=== PATIENT | female | born 1935 | race Caucasian/White ===

== ENCOUNTER 2016-11-12 09:37 | Day surgery (SDC) | payer MEDICARE, OTHER ==
[~2016-11-12] VITALS: Ht 165.1 cm; Wt 164.0 kg
[~2016-11-12 09:37] MED LIST: 0.9% Sodium Chloride 1,000 ML IV SCH; AMLO5TAB2 PO; ATOR20TA PO; BIOT800T PO; CHOL25PO8 PO; DICY20TA33 PO; ESCI20TA38 PO; FENO145T19 PO; GABA600T2 PO; GLIP5POW MC; LEVO50CA2 PO; LOSA100T29 PO; METF750T2 PO; METO-274 PO; MONT10TA23 PO; MULT-666 PO; PANT40TA3 PO; SITA50TA PO; Sodium Chloride LOK Flush 10 mL Syringe IV PRN; ZOLP10TA5 PO; fentaNYL-PF 50 mCg/mL 2 mL Inj IVPUSH PRN
[2016-11-12 10:21] VITALS: BP 155/77; PULSE 56; RESP 14; O2SAT 98
[2016-11-12 10:53] VITALS: BP 143/69; PULSE 67; RESP 14; O2SAT 93
[2016-11-12 11:08] VITALS: BP 161/74; PULSE 59; RESP 16; O2SAT 96
[2016-11-12 11:12] VITALS: BP 156/77; PULSE 59; RESP 16; O2SAT 98
--- NOTE | 2016-11-12 14:19 | ENDO ---
[address] [address] ENDOSCOPY PROCEDURE PATIENT: ALEXANDRIA PADRON : 1935 MR#: [id number] ADMIT: 11/12/2016 JOB ID: [id number] DATE OF SERVICE: 11/12/2016 TYPE OF OPERATION: Colonoscopy with biopsy. PREOPERATIVE DIAGNOSIS(ES): Diarrhea. POSTOPERATIVE DIAGNOSIS(ES): 1. Severe sigmoid diverticulosis. 2. Ascending colon diverticulosis. 3. External and internal hemorrhoids. ANESTHESIA: Fentanyl 100 mcg, Versed 4 mg IV administered. COMPLICATIONS: None. BLOOD LOSS: Minimal. DESCRIPTION OF PROCEDURE: After risks and benefits explained to the patient, informed consent was obtained. After anesthesia administered, colonoscope was then inserted from rectum to the terminal posterior, and mucosa carefully examined. Prep of the patient was excellent. After the procedure was done, the scope withdrawn and procedure terminated. FINDINGS: Upon inspection of the anus, there were external hemorrhoids, moderate. During the entire examination, there was severe sigmoid diverticulosis and mild ascending colon diverticulosis. Retroflexion showed small internal hemorrhoids. IMPRESSION: 1. Moderate internal and external hemorrhoids. 2. Severe sigmoid diverticulosis. 3. Mild ascending colon diverticulosis. 4. Random biopsies were taken from the terminal ileum and random colon. RECOMMENDATIONS: Await pathology results. High-fiber diet. Follow up in GI clinic as needed.
--- NOTE | 2016-11-13 11:03 | PATH ---
SURGICAL PATHOLOGY Attending Physician:Daniel Boyd MD CASE STATUS: Signed Out PATIENT NAME: ALEXANDRIA PADRON PID: [id number] : 1935 DATE COLLECTED:11/12/2016 16:16 SPECIMEN: 1: Ileum, Biopsy 2: Colon, Biopsy CLINICAL HISTORY: 1. TI BX 2. RANDOM COLON BX FINAL DIAGNOSIS: 1.TERMINAL ILEUM BIOPSY: NORMAL TERMINAL ILEUM MUCOSA. No inflammation identified. Negative for dysplasia and malignancy. 2.RANDOM COLON BIOPSY: COLONIC MUCOSA WITH NO DIAGNOSTIC ALTERATIONS. Negative for inflammation, dysplasia and malignancy. ICD10 CODE R19.7 GROSS DESCRIPTION: The specimen is received in two formalin filled containers labeled with the patient's name. 1). The specimen is sublabeled "TI" and consists of a 0.2 x 0.2 x 0.2 CM portion of tissue which is entirely submitted in cassette 1A. 2). The specimen is sublabeled "random colon" and consists of 4 portions of tissue which aggregate to 4 x 0.4 x 0.3 CM. The specimen is entirely submitted in cassette 2A. 11/12/2016 [facility] MICRO DESCRIPTION: See diagnosis. ICD-9 CODES: CPT CODES: 1: 11948 2: 61162 Electronically Signed Out Rosa Romo MD [facility] Pathology [facility], [place] [address] Technical component performed at [facility], [facility], [facility] [address], [place], [address]
== END 2016-11-12 23:59 | disposition home or self-care (01) ==
LOC: END 09:37
PROVIDERS: ATTEND Internal Medicine Gastroenterology
DX: K57.30 Diverticulosis of large intestine without perforation or abscess without bleeding (principal); K64.8 Other hemorrhoids; K64.9 Unspecified hemorrhoids; R10.13 Epigastric pain; K59.00 Constipation, unspecified; R14.0 Abdominal distension (gaseous); E11.9 Type 2 diabetes mellitus without complications; F41.9 Anxiety disorder, unspecified; E78.5 Hyperlipidemia, unspecified; E03.9 Hypothyroidism, unspecified; K21.9 Gastro-esophageal reflux disease without esophagitis; Z98.84 Bariatric surgery status; Z79.84 Long term (current) use of oral hypoglycemic drugs
CPT/HCPCS: 45380; 88305; G0500; J7030